=== PATIENT | male | born 1960 | race Caucasian/White ===

== ENCOUNTER 2020-11-06 10:52 | Outpatient (CLI) | payer OTHER, SELFPAY ==
--- NOTE | 2020-11-06 11:08 | XR_ITS ---
WS: [id number] Left knee, 3 views, 11/06/2020 Clinical Data: PAIN IN LEFT KNEE Comparison: None. Findings: No fractures or dislocations are seen. There is medial joint compartment narrowing. There is a buckle sewer ior superior spur of the patella.The soft tissues are normal. XR/XR knee LT 3V* [id number] Impression: Moderate osteoarthritis of the medial joint compartment of the left knee and of the posterior left patella.
--- NOTE | 2020-11-06 11:08 | XR_ITS ---
WS: [id number] Lumbar spine, AP, lateral, L5-S1 spot, both obliques, 11/06/2020 Clinical Data: LOW BACK PAIN Comparison: None. Findings: No compression fractures or subluxation is seen. There is osteoarthritic spurring of the lower thorac ic and all the lumbar vertebral bodies.There is disc space narrowing from T12-L1 to L4-L5. The obliqu e films show no spondylolysis. The SI joints and transverse processes are unremarkable. There is a sl ight dextroscoliosis. There are clips in the upper abdomen from a cholecystectomy. There is a large a mount of fecal material in the ascending colon. XR/XR lumbar spine min 4V [id number] Impression: 1. Osteoarthritis of all lumbar vertebral bodies. 2. Degenerative disc narrowing from T12-L1 through L4-L5. 3. Minimal dextroscoliosis.
== END 2020-11-06 10:53 | disposition home or self-care (01) ==
LOC: RADWPI 10:59
PROVIDERS: PCP Nurse Practitioner Family; Visit Provider Nurse Practitioner Family
DX: M25.462 Effusion, left knee (principal); M54.5 Low back pain; M47.816 Spondylosis without myelopathy or radiculopathy, lumbar region; M17.12 Unilateral primary osteoarthritis, left knee
CPT/HCPCS: 72114; 73562

== ENCOUNTER 2024-09-10 12:09 | Outpatient (CLI) | payer OTHER, SELFPAY ==
--- NOTE | 2024-09-10 12:19 | XR_ITS ---
WS: [id number] Exam: XR chest 2V* [id number] Date/Time of Exam: 09/10/2024 12:31 PM Reason For Exam: POSTPROCEDURAL FEVER There is questionable pleural effusion in the posterior inferior RIGHT pulmonary gutter. The lungs ar e fully expanded and clear. Normal cardiomediastinal silhouette. Bony structures are intact. There is hardware in the lower thoracic and visualized upper lumbar spine. XR/XR chest 2V* [id number] IMPRESSION: 1. Questionable pleural effusion in the RIGHT posterior pulmonary gutter. A RIG HT lateral decubitus view of the chest could be helpful for further work-up. 2. The lungs are otherwise clear with no other significant finding.
== END 2024-09-10 12:10 | disposition home or self-care (01) ==
LOC: RAD 12:13
PROVIDERS: PCP Nurse Practitioner Family; Visit Provider Family Medicine
DX: R50.82 Postprocedural fever (principal); I10 Essential (primary) hypertension
CPT/HCPCS: 71046